=== PATIENT | male | born 1985 ===

== ENCOUNTER 2021-01-23 07:09 | Outpatient (REF) | payer OTHER, SELFPAY | END 2021-01-23 07:10 | disposition home or self-care (01) | LOC: HO.HOSX 07:09 | PROVIDERS: Visit Provider Physician Assistant | DX: Z13.89 Encounter for screening for other disorder (principal) ==

== ENCOUNTER 2021-03-13 05:39 | Outpatient (REF) | payer OTHER, SELFPAY ==
--- NOTE | ~2021-03-13 | XR_ITS ---
EXAMINATION: XR ANKLE, RIGHT CLINICAL INFORMATION: Right ankle pain. COMPARISON: None TECHNIQUE: AP, lateral, and mortise views of the right ankle. FINDINGS: No acute fracture or dislocation. Mild tibiotalar joint space narrowing with small marginal osteophytes. Degenerative spurring at the distal tibiofibular syndesmosis. No osseous erosion. Plantar and dorsal calcaneal spurs. 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 Small plantar and dorsal calcaneal spurs.
== END 2021-03-13 05:40 | disposition home or self-care (01) ==
LOC: HO.HOSX 05:39
PROVIDERS: Visit Provider Physician Assistant
DX: M19.171 Post-traumatic osteoarthritis, right ankle and foot (principal)
CPT/HCPCS: 73610; 99202